=== PATIENT | female | born 1990 | race Caucasian/White ===

== ENCOUNTER 2018-04-24 19:42 | Emergency (ER) | payer MEDICAID ==
[~2018-04-24] VITALS: Ht 175.3 cm; Wt 70.0 kg
[~2018-04-24 19:42] MED LIST: LORA-392 PO; SUBOXONE
[2018-04-24 19:58] VITALS: BP 147/78; PULSE 88; RESP 18; TEMP 98.8; O2SAT 98
[2018-04-24] MEDS ORDERED: SODIUM CHLOR 0.9% 1000 ML INJ 1,000 ML IV SCH (20:16)
[2018-04-24] MEDS ORDERED: SODIUM CHLORIDE 0.9% FLUSH 10 ML FLUSH IV FLUSH PRN (20:30)
[2018-04-24] MEDS ORDERED: METOCLOPRAMIDE HCL 10 MG/2 ML VIAL IV PUSH ONE (20:30)
[2018-04-24] MEDS ORDERED: MORPHINE SULFATE 4 MG/ML INJ IV PUSH ONE (20:30)
--- NOTE | 2018-04-24 20:49 | PD ---
HPI Chief Complaint: Abdominal Pain Time Seen by Provider: 20:16 Travel History International Travel<30 days: No Contact w/Intl Traveler<30days: No Traveled to known affect area: No History of Present Illness HPI Patient is a 28-year-old female who presents the emergency room complaints of abdominal pain. Patient reports that for the past few days, she has been having upper abdominal pain with associated nausea and vomiting. Patient reports that she has had decreased appetite, reports that she has been drinking fluids but has not been able to really eat anything that is solid. Patient reports that nothing makes pain better or worse. Reports that pain goes from the front of her abdomen and radiates to her back. Patient reports that today, she has been having episodes of nausea and vomiting. Patient reports that her vomit is yellow appearing. Patient reports that she does have history of hypertension, she does take metoprolol. Patient's only surgery is history of a thyroglossal duct cyst removal. Patient reports that she does drink alcohol but not daily, denies any drug abuse. 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) Allergies-Medications (Allergen,Severity, Reaction): Coded Allergies: No Known Allergies (Verified Adverse Reaction, Unknown, 04/24/18) Reported Meds & Prescriptions Reported Meds & Active Scripts Active Reported [Suboxone] 4 Mg DAILY Ativan (Lorazepam) 0.5 Mg Tab 0.5 Mg PO BID Review of Systems General / Constitutional: Positive: Fever (Subjective fevers) Eyes: No: Visual changes HENT: No: Headaches Cardiovascular: No: Chest Pain or Discomfort Respiratory: No: Shortness of Breath Gastrointestinal: Positive: Nausea, Vomiting, Abdominal Pain Genitourinary: No: Dysuria Musculoskeletal: No: Pain Skin: No Rash Neurologic: No: Weakness Psychiatric: No: Depression Endocrine: No: Polydipsia Hematologic/Lymphatic: No: Easy Bruising Physical Exam Narrative GENERAL: Moderate distress SKIN: Focused skin assessment warm/dry. HEAD: Atraumatic. Normocephalic. EYES: Pupils equal and round. No scleral icterus. No injection or drainage. ENT: No nasal bleeding or discharge. Mucous membranes pink and moist. NECK: Trachea midline. No JVD. CARDIOVASCULAR: Regular rate and rhythm. No murmur appreciated. RESPIRATORY: No accessory muscle use. Clear to auscultation. Breath sounds equal bilaterally. GASTROINTESTINAL: Abdomen soft, mildly tender to the epigastrium to right upper quadrant, nondistended. Hepatic and splenic margins not palpable. MUSCULOSKELETAL: No obvious deformities. No clubbing. No cyanosis. No edema. NEUROLOGICAL: Awake and alert. No obvious cranial nerve deficits. Motor grossly within normal limits. Normal speech. PSYCHIATRIC: Appropriate mood and affect; insight and judgment normal. Data Data Last Documented VS Vital Signs Date Time Temp Pulse Resp B/P (MAP) Pulse Ox O2 Delivery O2 Flow Rate FiO2 04/24/18 21:04 Room Air 04/24/18 19:58 98.8 88 18 147/78 (101) 98 Orders Orders Complete Blood Count With Diff (04/24/18 20:16) Comprehensive Metabolic Panel (04/24/18 20:16) Lipase (04/24/18 20:16) Prothrombin Time / Inr (Pt) (04/24/18 20:16) Act Partial Throm Time (Ptt) (04/24/18 20:16) Urinalysis - C+S If Indicated (04/24/18 20:16) Iv Access Insert/Monitor (04/24/18 20:16) Ecg Monitoring (04/24/18 20:16) Oximetry (04/24/18 20:16) NPO (04/24/18 20:16) Sodium Chlor 0.9% 1000 Ml Inj (Ns 1000 M (04/24/18 20:16) Sodium Chloride 0.9% Flush (Ns Flush) (04/24/18 20:30) Ed Urine Pregnancytest Poc (04/24/18 20:16) Us Abdomen Gallbladder (04/24/18 ) Morphine Inj (Morphine Inj) (04/24/18 20:30) Metoclopramide Inj (Reglan Inj) (04/24/18 20:30) Al-Mag Hy-Si 40-40-4 Mg/Ml Liq (Mag-Al P (04/24/18 23:15) Lidocaine 2% Viscous (Xylocaine 2% Visco (04/24/18 23:15) Iohexol 350 Inj (Omnipaque 350 Inj) (04/24/18 23:32) Ct Abd/Pel W/O Iv Contrast (04/24/18 23:40) Labs Laboratory Tests Test 04/24/18 20:46 04/24/18 21:33 Urine Color COLORLESS Urine Turbidity CLEAR Urine pH 6.0 Urine Specific [place] 1.002 Urine Protein NEG mg/dL Urine Glucose (UA) NEG mg/dL Urine Ketones NEG mg/dL Urine Occult Blood NEG Urine Nitrite NEG Urine Bilirubin NEG Urine Urobilinogen LESS THAN 2.0 MG/DL Urine Leukocyte Esterase NEG Urine Squamous Epithelial Cells 1 /hpf Urine Mucus FEW /lpf Microscopic Urinalysis Comment CULT NOT INDICATED White Blood Count 5.9 TH/MM3 Red Blood Count 4.41 MIL/MM3 Hemoglobin 12.0 GM/DL Hematocrit 36.2 % Mean Corpuscular Volume 82.1 FL Mean Corpuscular Hemoglobin 27.2 PG Mean Corpuscular Hemoglobin Concent 33.1 % Red Cell Distribution Width 14.1 % Platelet Count 248 TH/MM3 Mean Platelet Volume 7.5 FL Neutrophils (%) (Auto) 59.3 % Lymphocytes (%) (Auto) 31.8 % Monocytes (%) (Auto) 7.3 % Eosinophils (%) (Auto) 1.3 % Basophils (%) (Auto) 0.3 % Neutrophils # (Auto) 3.5 TH/MM3 Lymphocytes # (Auto) 1.9 TH/MM3 Monocytes # (Auto) 0.4 TH/MM3 Eosinophils # (Auto) 0.1 TH/MM3 Basophils # (Auto) 0.0 TH/MM3 CBC Comment DIFF FINAL Differential Comment Prothrombin Time 11.3 SEC Prothromb Time International Ratio 1.1 RATIO Activated Partial Thromboplast Time 30.8 SEC Blood Urea Nitrogen 9 MG/DL Creatinine 0.82 MG/DL Random Glucose 93 MG/DL Total Protein 8.0 GM/DL Albumin 3.5 GM/DL Calcium Level 9.1 MG/DL Alkaline Phosphatase 72 U/L Aspartate Amino Transf (AST/SGOT) 20 U/L Alanine Aminotransferase (ALT/SGPT) 25 U/L Total Bilirubin 0.4 MG/DL Sodium Level 138 MEQ/L Potassium Level 3.4 MEQ/L Chloride Level 104 MEQ/L Carbon Dioxide Level 24.2 MEQ/L Anion Gap 10 MEQ/L Estimat Glomerular Filtration Rate 82 ML/MIN Lipase 101 U/L MDM Medical Decision Making Medical Screen Exam Complete: Yes Emergency Medical Condition: Yes Medical Record Reviewed: Yes Interpretation(s) Vital Signs Date Time Temp Pulse Resp B/P (MAP) Pulse Ox O2 Delivery O2 Flow Rate FiO2 04/24/18 19:58 98.8 88 18 147/78 (101) 98 Differential Diagnosis Pancreatitis, cholecystitis, gastric ulcer, gastritis, gastroenteritis Narrative Course Patient is a 28-year-old female presents the emergency room complaints of abdominal pain which has been ongoing and persistent for the past 3 days. Patient reports associated nausea vomiting or symptoms. During the course of the patients emergency department visit, the patients history, examination, and differential diagnosis were reviewed with the patient. The patient was placed on a surveillance monitor with oximetry and frequent blood pressure monitoring. The patient had an IV access obtained and blood work sent for analysis. The patient was initially provided IVF, IV Reglan as well as IV morphine for pain. The patients laboratory studies were reviewed and remarkable for Laboratory Tests Test 04/24/18 20:46 04/24/18 21:33 Urine Color COLORLESS (YELLW/STRAW) Urine Turbidity CLEAR (CLEAR) Urine pH 6.0 (5.0-8.5) Urine Specific [place] 1.002 (1.002-1.035) Urine Protein NEG mg/dL (NEG-TRACE) Urine Glucose (UA) NEG mg/dL (NEG) Urine Ketones NEG mg/dL (NEG) Urine Occult Blood NEG (NEG) Urine Nitrite NEG (NEG) Urine Bilirubin NEG (NEG) Urine Urobilinogen LESS THAN 2.0 MG/DL (LESS Urine Leukocyte Esterase NEG (NEG) Urine Squamous Epithelial Cells 1 /hpf (0-5) Urine Mucus FEW /lpf (OCC) Microscopic Urinalysis Comment CULT NOT INDICATED White Blood Count 5.9 TH/MM3 (4.0-11.0) Red Blood Count 4.41 MIL/MM3 (4.00-5.30) Hemoglobin 12.0 GM/DL (11.6-15.3) Hematocrit 36.2 % (35.0-46.0) Mean Corpuscular Volume 82.1 FL (80.0-100.0) Mean Corpuscular Hemoglobin 27.2 PG (27.0-34.0) Mean Corpuscular Hemoglobin Concent 33.1 % (32.0-36.0) Red Cell Distribution Width 14.1 % (11.6-17.2) Platelet Count 248 TH/MM3 (150-450) Mean Platelet Volume 7.5 FL (7.0-11.0) Neutrophils (%) (Auto) 59.3 % (16.0-70.0) Lymphocytes (%) (Auto) 31.8 % (9.0-44.0) Monocytes (%) (Auto) 7.3 % (0.0-8.0) Eosinophils (%) (Auto) 1.3 % (0.0-4.0) Basophils (%) (Auto) 0.3 % (0.0-2.0) Neutrophils # (Auto) 3.5 TH/MM3 (1.8-7.7) Lymphocytes # (Auto) 1.9 TH/MM3 (1.0-4.8) Monocytes # (Auto) 0.4 TH/MM3 (0-0.9) Eosinophils # (Auto) 0.1 TH/MM3 (0-0.4) Basophils # (Auto) 0.0 TH/MM3 (0-0.2) CBC Comment DIFF FINAL Differential Comment Prothrombin Time 11.3 SEC (9.8-11.6) Prothromb Time International Ratio 1.1 RATIO Activated Partial Thromboplast Time 30.8 SEC (24.3-30.1) Blood Urea Nitrogen 9 MG/DL (7-18) Creatinine 0.82 MG/DL (0.50-1.00) Random Glucose 93 MG/DL (74-106) Total Protein 8.0 GM/DL (6.4-8.2) Albumin 3.5 GM/DL (3.4-5.0) Calcium Level 9.1 MG/DL (8.5-10.1) Alkaline Phosphatase 72 U/L (45-117) Aspartate Amino Transf (AST/SGOT) 20 U/L (15-37) Alanine Aminotransferase (ALT/SGPT) 25 U/L (10-53) Total Bilirubin 0.4 MG/DL (0.2-1.0) Sodium Level 138 MEQ/L (136-145) Potassium Level 3.4 MEQ/L (3.5-5.1) Chloride Level 104 MEQ/L (98-107) Carbon Dioxide Level 24.2 MEQ/L (21.0-32.0) Anion Gap 10 MEQ/L (5-15) Estimat Glomerular Filtration Rate 82 ML/MIN (>89) Lipase 101 U/L (73-393) Radiology studies were reviewed and remarkable for Last Impressions Gall Bladder Ultrasound 04/24/18 0000 Signed Impressions: CONCLUSION: 1. No gallstones. Common bile duct mildly prominent at 7 mm. Minimal right-carline ed hydronephrosis. Patient reevaluated, patient reports that she has felt mildly better at this time. Patient still has abdominal pain and still feels uncomfortable. CT the abdomen pelvis ordered for further evaluation of abdominal pain. Last Impressions Abdomen/Pelvis CT 04/24/18 2340 Signed Impressions: CONCLUSION: 1. Negative CT Abdomen and Pelvis non contrast. The appendix is normal. Gall Bladder Ultrasound 04/24/18 0000 Signed Impressions: CONCLUSION: 1. No gallstones. Common bile duct mildly prominent at 7 mm. Minimal right-carline ed hydronephrosis. CT the abdomen pelvis with no acute findings. Patient is feeling much better at this time. All labs and all studies as well as all incidental findings were reviewed with patient, she will follow-up with her primary care doctor and will return to the emergency room as needed. Diagnosis Primary Impression: Abdominal pain Qualified Codes: R10.10 - Upper abdominal pain, unspecified Additional Impression: Nausea & vomiting Qualified Codes: R11.2 - Nausea with vomiting, unspecified Patient Instructions: General Instructions Additional Instructions: Please provide patient with a copy of their lab work and studies at discharge* * Please follow up with your primary care doctor in 2-3 days Return to the ER if symptoms worsen or progress Return to the ER as needed Med/Other Pt SpecificInfo: Prescription(s) given Scripts Ondansetron (Zofran) 4 Mg Tab 4 MG PO Q6HR Y for NAUSEA OR VOMITING, #20 TAB 0 Refills Prov: Lacey Thomas DO 04/25/18 Disposition: 01 DISCHARGE HOME Condition: Stable Lacey Thomas DO Apr 24, 2018 20:49
[2018-04-24 21:12] LABS: BILIRUBIN, URINE NEG (NEG); BLOOD, URINE NEG (NEG); GLUCOSE,URINE NEG (NEG); KETONE, URINE NEG (NEG); MUCUS URINE FEW /lpf (OCC); NITRITE,URINE NEG (NEG); SQUAMOUS EPITHELIAL CELL URINE 1 /hpf (0-5); URINE COLOR COLORLESS (YELLW/STRAW); URINE LEUKOCYTE ESTERASE NEG (NEG)
[2018-04-24 21:44] LABS: AUTOMATED NEUTROPHIL # 3.5 TH/MM3 (1.8-7.7); BASOPHIL % 0.3 % (0.0-2.0); EOSINOPHIL # 0.1 TH/MM3 (0-0.4); EOSINOPHIL % 1.3 % (0.0-4.0); HEMATOCRIT 36.2 % (35.0-46.0); LYMPH % 31.8 % (9.0-44.0); LYMPHOCYTE # 1.9 TH/MM3 (1.0-4.8); MEAN CELL VOLUME 82.1 FL (80.0-100.0); MEAN CORPUSCULAR HEMOGLOBIN 27.2 PG (27.0-34.0); MEAN CORPUSCULAR HGB CONC 33.1 % (32.0-36.0); MEAN PLATELET VOLUME 7.5 FL (7.0-11.0); MONO % 7.3 % (0.0-8.0); MONOCYTE # 0.4 TH/MM3 (0-0.9); NEUT % 59.3 % (16.0-70.0); PLATELET COUNT 248 TH/MM3 (150-450); RED BLOOD COUNT 4.41 MIL/MM3 (4.00-5.30); RED CELL DISTRIBUTION WIDTH 14.1 % (11.6-17.2); WHITE BLOOD COUNT 5.9 TH/MM3 (4.0-11.0)
[2018-04-24 21:58] LABS: INTERNATIONAL NORMALIZED RATIO 1.1 RATIO; PROTHROMBIN TIME - PATIENT 11.3 SEC (9.8-11.6)
[2018-04-24 22:16] LABS: ALBUMIN 3.5 GM/DL (3.4-5.0); AST (GOT) 20 U/L (15-37); BICARBONATE 24.2 MEQ/L (21.0-32.0); BLOOD UREA NITROGEN 9 MG/DL (7-18); CALCIUM 9.1 MG/DL (8.5-10.1); CHLORIDE 104 MEQ/L (98-107); CREATININE 0.82 MG/DL (0.50-1.00); GLOMERULAR FILTRATION RATE 82 ML/MIN (>89); GLUCOSE,RANDOM 93 MG/DL (74-106); SODIUM (NA) 138 MEQ/L (136-145)
[2018-04-24 22:17] LABS: ALT (GPT) 25 U/L (10-53)
[2018-04-24 22:19] LABS: ALKALINE PHOSPHATASE 72 U/L (45-117); TOTAL BILIRUBIN ADULT 0.4 MG/DL (0.2-1.0)
--- NOTE | 2018-04-24 22:34 | RADRPT ---
EXAM DATE: 04/24/2018 10:29 PM EDT AGE/SEX: 28 years / Female INDICATIONS: Abdominal pain. CLINICAL DATA: This is the patient's initial encounter. Patient reports that signs and/or symptoms h ave been present for 1 day and indicates a pain score of 7/10. MEDICAL/SURGICAL HISTORY: . . COMPARISON: No prior exams available for comparison. MEASUREMENTS (cm x cm x cm): Liver:__ 17.7 cm length Common Bile Duct:__ 7mm FINDINGS: Liver: Normal echotexture without focal lesion or ductal dilatation. Portal Vein: Hepatopedal flow seen in portal vein. Common Duct: Mildly prominent at 7 mm Gallbladder: Demonstrates no wall thickening or pericholecystic fluid. No stones visualized. Pancreas: The visualized portions are within normal limits Right Kidney: Mildly prominent collecting system. Other: None. CONCLUSION: 1. No gallstones. Common bile duct mildly prominent at 7 mm. Minimal right-sided hydronephrosis. Electronically signed by: Wild Ordaz MD 04/24/2018 10:33 PM EDT
[2018-04-24] MEDS ORDERED: LIDOCAINE VISCOUS 2% SOLN 15 ML UDC PO ONE (23:15)
[2018-04-24] MEDS ORDERED: ALUMINUM/MAGNESIUM/SIMETH 30 ML CUP PO ONE (23:15)
[2018-04-24] MEDS ORDERED: IOHEXOL 350 MG/ML 10 ML VIAL (for RAD DIAG) IVCONTRAST ONE (23:32)
--- NOTE | 2018-04-24 23:52 | RADRPT ---
EXAM DATE: 04/24/2018 11:49 PM EDT AGE/SEX: 28 years / Female INDICATIONS: Abdomen pain. CLINICAL DATA: This is the patient's initial encounter. Patient reports that signs and symptoms have been present for 1 day and indicates a pain score of 7/10. MEDICAL/SURGICAL HISTORY: Hypertension. Asthma. Substance abuse . RADIATION DOSE: 4.39 CTDI (mGy) COMPARISON: No prior exams available for comparison. TECHNIQUE: Multiple contiguous axial images were obtained through the abdomen. Images were obtained using multiple row detector helical technique. Using dose reduction techniques, radiation dose was ke pt as low as reasonably achievable to obtain optimal diagnostic quality images. FINDINGS: Lower Lungs: The visualized lower lungs are clear. Liver: The liver has a homogeneous density without space-occupying lesion. There is no dilation of th e biliary tree. Spleen: Homogeneous density without enlargement. Pancreas: Unremarkable without mass or calcification. Kidneys: Normal in size and shape. No evidence of mass or hydronephrosis. Adrenal Glands: Unremarkable. Aorta: The aorta and proximal iliac vessels are grossly unremarkable without aneurysmal dilation. Bowel/Mesentery: The bowel loops are grossly unremarkable. The cecum and sigmoid colon have a normal configuration. Abdominal Wall: Intact. Retroperitoneum: No evidence of adenopathy in the retrocrural, para-aortic, or deep pelvic regions. Bladder: Contours are smooth. Reproductive Organs: No abnormal masses or calcifications seen. Inguinal: The inguinal region is unremarkable without evidence of adenopathy. Bony Structures: Unremarkable. CONCLUSION: 1. Negative CT Abdomen and Pelvis non contrast. The appendix is normal. Electronically signed by: Manny Thomson MD 04/24/2018 11:51 PM EDT
[2018-04-25] MEDS ORDERED: ZOFR4TAB PO (00:35)
== END 2018-04-25 01:00 | disposition home or self-care (01) ==
LOC: NEPE 19:42
DX: R10.10 Upper abdominal pain, unspecified (principal); R11.2 Nausea with vomiting, unspecified; I10 Essential (primary) hypertension; J45.909 Unspecified asthma, uncomplicated; Z72.0 Tobacco use
CPT/HCPCS: 74176; 76705; 80053; 81001; 83690; 84703; 85025; 85610; 85730; 96361; 96374; 96375; 99285; J2270; J2765; J7030; Q9967